=== PATIENT | female | born 1980 | race African-American/Black ===

== ENCOUNTER 2016-11-09 16:05 | Emergency (ER) | payer SELFPAY ==
[~2016-11-09] VITALS: Ht 165.1 cm; Wt 50.0 kg
[2016-11-09 17:29] LABS: BASOPHILS % 0.5 % (0.0-2.0); EOSINOPHILS % 1.2 % (0.0-5.0); HEMATOCRIT. 33.6 % (36.0-48.0); HEMOGLOBIN. 9.9 g/dL (12.0-16.0); LYMPHOCYTES % 40.1 % (20.0-50.0); MEAN CORPUSCULAR HEMOGLOBIN 19.6 pg (28.0-32.0); MEAN CORPUSCULAR VOLUME 66.3 fL (81.0-99.0); MEAN PLATELET VOLUME 6.1 fl (7.4-10.4); MONOCYTES % 6.2 % (2.0-8.0); PLATELET 508 x1000/uL (130-400); RED BLOOD CELL COUNT 5.07 mill/uL (4.2-5.4)
[2016-11-09 17:34] LABS: CHLORIDE 107 mEq/L (98-107)
[2016-11-09 17:42] LABS: CARBON DIOXIDE 23 mEq/L (21-32); ETHANOL BLOOD 136 mg/dL; PLATELET ESTIMATE MARKEDLY INCREASED
[2016-11-09 17:52] LABS: *BARBITURATES SCREEN URINE NEGATIVE (NEGATIVE); *BENZODIAZEPINES SCREEN URINE NEGATIVE (NEGATIVE); METHADONE URINE SCREEN NEGATIVE (NEGATIVE); OPIATES URINE SCREEN NEGATIVE (NEGATIVE)
[2016-11-09 17:55] LABS: *AMPHETAMINES SCREEN URINE PRESUMTIVE POSITIVE (NEGATIVE); *COCAINE SCREEN URINE PRESUMTIVE POSITIVE (NEGATIVE); CANNABINOID URINE SCREEN PRESUMTIVE POSITIVE (NEGATIVE); PHENCYCLIDINE URINE SCREEN PRESUMTIVE POSITIVE (NEGATIVE)
[2016-11-09] MEDS ORDERED: LORAZEPAM 2MG/ML CPJ IV STA (23:22)
[2016-11-09] MEDS ORDERED: LORAZEPAM 1MG TABLET PO ONE (23:45)
[2016-11-10 05:30] VITALS: BP 131/79
== END 2016-11-10 06:47 | disposition home or self-care (01) ==
LOC: EDBD → ER 16:18
DX: F10.129 Alcohol abuse with intoxication, unspecified (principal); T40.995A Adverse effect of other psychodysleptics [hallucinogens], initial encounter; F12.929 Cannabis use, unspecified with intoxication, unspecified; F15.10 Other stimulant abuse, uncomplicated; F14.10 Cocaine abuse, uncomplicated; Y92.89 Other specified places as the place of occurrence of the external cause
CPT/HCPCS: 36415; 80048; 80305; 85025; 99284; G0482; Z7610

== ENCOUNTER 2016-11-10 06:58 | Emergency (ER) | payer SELFPAY ==
[~2016-11-10] VITALS: Ht 177.8 cm; Wt 120.0 kg
[2016-11-10 07:05] VITALS: BP 130/69
== END 2016-11-10 08:47 | disposition left against medical advice (07) ==
LOC: EDBD 06:58 → ER 08:11
DX: R45.851 Suicidal ideations (principal); R41.82 Altered mental status, unspecified; Z59.0 Homelessness
CPT/HCPCS: 99283

== ENCOUNTER 2016-11-10 09:22 | Emergency (ER) | payer SELFPAY ==
[~2016-11-10] VITALS: Ht 170.2 cm; Wt 60.0 kg
[2016-11-10] MEDS ORDERED: OLANZAPINE 10 MG/VIAL IM ONE (09:30)
[2016-11-10] MEDS ORDERED: LORAZEPAM 2MG/ML CPJ IM STA (09:30)
[2016-11-10 10:04] LABS: CLARITY URINE CLEAR (CLEAR); COLOR URINE YELLOW (YELLOW); GLUCOSE URINE NEGATIVE (NEGATIVE); KETONES URINE NEGATIVE (NEGATIVE); LEUKOCYTE ESTERASE URINE NEGATIVE (NEGATIVE); NITRITE URINE NEGATIVE (NEGATIVE); OCCULT BLOOD URINE NEGATIVE (NEGATIVE); PH URINE 5.5 (4.5-8.0); PROTEIN URINE NEGATIVE (NEGATIVE); SPECIFIC GRAVITY URINE 1.028 (1.005-1.030); UROBILINOGEN URINE 0.2 E.U./dL (0.2-1.0)
[2016-11-10 10:21] LABS: BASOPHILS % 1.4 % (0.0-2.0); EOSINOPHILS % 1.2 % (0.0-5.0); HEMATOCRIT. 31.2 % (36.0-48.0); HEMOGLOBIN. 9.5 g/dL (12.0-16.0); LYMPHOCYTES % 25.4 % (20.0-50.0); MEAN CORPUSCULAR HEMOGLOBIN 19.8 pg (28.0-32.0); MEAN PLATELET VOLUME 6.2 fl (7.4-10.4); MONOCYTES % 9.8 % (2.0-8.0); NEUTROPHILS % 62.2 % (40.0-76.0); PLATELET 437 x1000/uL (130-400); RED BLOOD CELL COUNT 4.79 mill/uL (4.2-5.4); RED CELL DISTRIBUTION WIDTH 18.3 % (11.6-14.6)
[2016-11-10 10:27] LABS: CHLORIDE 104 mEq/L (98-107)
[2016-11-10 10:35] LABS: *BARBITURATES SCREEN URINE NEGATIVE (NEGATIVE); *BENZODIAZEPINES SCREEN URINE NEGATIVE (NEGATIVE); METHADONE URINE SCREEN NEGATIVE (NEGATIVE); OPIATES URINE SCREEN NEGATIVE (NEGATIVE)
[2016-11-10 10:35] LABS: CARBON DIOXIDE 25 mEq/L (21-32); ETHANOL BLOOD < 10 mg/dL
[2016-11-10 10:40] LABS: *AMPHETAMINES SCREEN URINE PRESUMTIVE POSITIVE (NEGATIVE); *COCAINE SCREEN URINE PRESUMTIVE POSITIVE (NEGATIVE); CANNABINOID URINE SCREEN PRESUMTIVE POSITIVE (NEGATIVE); PHENCYCLIDINE URINE SCREEN PRESUMTIVE POSITIVE (NEGATIVE)
[2016-11-10 21:44] VITALS: BP 109/65
== END 2016-11-10 22:15 ==
LOC: ER 11:29
DX: R45.851 Suicidal ideations (principal); F17.200 Nicotine dependence, unspecified, uncomplicated
CPT/HCPCS: 36415; 80053; 80305; 81003; 85025; 96372; 99285; G0482; J2060; J3490; Z7610; A4315